=== PATIENT | female | born 1995 | race Caucasian/White ===

== ENCOUNTER 2023-10-01 09:53 | Inpatient (IN) | payer OTHER ==
[2023-10-01 10:22] LABS: Glucose,Whole Blood 96 mg/dL (70-110)
[2023-10-01] MEDS ORDERED: CARBOPROST TROMETHAMINE 250 MCG/ML 1 ML AMP IM PRN (10:25)
[2023-10-01] MEDS ORDERED: TRANEXAMIC 1,000 MG/100ML-NACL 1,000 MG in EMPTY BAG 1 BAG IV PRN (10:25)
[2023-10-01] MEDS ORDERED: LACTATED RINGERS 1,000 ML IV ONE (10:25)
[2023-10-01] MEDS ORDERED: METHYLERGONOVINE 0.2 MG/ML 1 ML AMP IM PRN (10:25)
[2023-10-01] MEDS ORDERED: CITRIC ACID-SODIUM CITRATE 15 ML CUP PO ONE (10:25)
[2023-10-01] MEDS ORDERED: miSOPROStoL 200 MCG TAB PO PRN (10:25)
[2023-10-01] MEDS ORDERED: OXYTOCIN 10 UNIT/ML 1 ML VIAL IM PRN (10:25)
[2023-10-01] MEDS ORDERED: ceFAZolin 3 GM in SODIUM CHLORIDE 0.9% 100 ML IVPB ONE (10:25)
[2023-10-01 10:43] LABS: Basophils # (A) 0.1 k/uL (0-0.2); Basophils % (A) 1 %; Eosinophils # (A) 0.1 k/uL (0-0.7); Eosinophils % (A) 1 %; HCT 38.2 % (34.0-46.0); HGB 13.1 gm/dL (11.4-16.0); Lymphocytes # (A) 2.5 k/uL (1.0-4.8); Lymphocytes % (A) 33 %; MCH 31.3 pg (25.0-35.0); MCHC 34.4 g/dL (31.0-37.0); MCV 90.9 fL (80.0-100.0); Monocytes # (A) 0.3 k/uL (0-1.0); Monocytes % (A) 4 %; Neutrophils # (A) 4.5 k/uL (1.3-7.7); Neutrophils % (A) 59 %; Platelet Count 277 k/uL (150-450); RDW 12.6 % (11.5-15.5); WBC 7.7 k/uL (3.8-10.6)
--- NOTE | 2023-10-01 13:16 | P.HPOB ---
History of Present Illness H&P Date: 10/01/23 Chief Complaint: Term , previous This is a 28-year-old 2 para 1001 woman with an estimated due date of 10/09/2023 who presents at 39 weeks gestation for repeat low transverse section with bilateral salpingectomy. She desires no further pregnancies and options for contraception have been reviewed extensively in the outpatient setting. Her has been complicated by gestational diabetes, diet controlled as well as gestational hypertension controlled with labetalol. She has been on Valtrex HSV suppression since 36 weeks. Obstetric history is significant for 1 previous term section for failure to progress. Laboratory data: Blood type B positive, antibody screen negative, rubella immune, VDRL nonreactive, hepatitis B surface antigen negative, gonorrhea and clinic cultures negative, HIV negative, group B strep negative Review of Systems All systems: negative Past Medical History Past Medical History: No Reported History Additional Past Medical History / Comment(s): Gestational diabetes History of Any Multi-Drug Resistant Organisms: None Reported Past Surgical History: Section, Cholecystectomy Additional Past Surgical History / Comment(s): R arm surgery FX. Past Anesthesia/Blood Transfusion Reactions: No Reported Reaction Past Psychological History: No Psychological Hx Reported Smoking Status: Never smoker Past Alcohol Use History: None Reported Past Drug Use History: None Reported - Past Family History Father Family Medical History: Hypertension, Seizure Disorder Mother Family Medical History: Diabetes Mellitus Medications and Allergies Home Medications Medication Instructions Recorded Confirmed Type Labetalol [Trandate] 1 tab PO DAILY 10/01/23 10/01/23 History Omeprazole 1 tab PO DAILY 10/01/23 10/01/23 History Vit No.179/Iron/Folic 1 tab PO DAILY 10/01/23 10/01/23 History [ Tablet] Allergies Allergy/AdvReac Type Severity Reaction Status Date / Time No Known Allergies Allergy Verified 10/01/23 10:23 Exam Vital Signs Temp Pulse Resp BP Pulse Ox 10/01/23 10:34 98.1 F 99 16 106/63 95 Intake and Output 09/30/23 10/01/23 10/01/23 22:59 06:59 14:59 Other: Weight 127.006 kg This is a pleasant, visibly gravid female in no apparent distress. heart tones are category 1. HEENT exam unremarkable. Lungs clear to auscultation bilaterally. Heart is a regular rate and rhythm. The abdomen is gravid, soft and nontender. She has 1+ bilateral lower extremity edema. Results Result Diagrams: 10/01/23 10:22 Assessment and Plan (1) Gestational diabetes Current Visit: Yes Status: Acute Code(s): O24.419 - GESTATIONAL DIABETES MELLITUS IN , UNSP CONTROL SNOMED Code(s): 32002998 (2) History of Current Visit: Yes Status: Acute Code(s): Z98.891 - HISTORY OF UTERINE SCAR FROM PREVIOUS SURGERY SNOMED Code(s): 792771172 (3) induced hypertension Current Visit: Yes Status: Acute Code(s): O13.9 - GESTATIONAL HTN W/O SIGNIFICANT PROTEINURIA, UNSP TRIMESTER SNOMED Code(s): 51209232 (4) Family planning Current Visit: Yes Status: Acute Code(s): Z30.09 - ENCOUNTER FOR OT GENERAL CNSL AND ADVICE ON CONTRACEPTION SNOMED Code(s): 733193692 Plan: 28-year-old 2 para 1001 woman admitted at 38 weeks gestation for repeat low transverse section with bilateral salpingectomy. Indication for delivery is gestational diabetes and gestational hypertension. She declines trial of labor. She has declined other options for long-term contraception Fe caden status is currently reassuring. She is group B strep negative and Rh+. Risk benefits and alternatives of repeat section have been reviewed with the patient in the outpatient setting. Risks include but are not limited to bleeding, transfusion, infection, damage to bowel, bladder, ureters and/or other pelvic structures and or the . She understands risks of salpingectomy are ectopic . Consent is obtained.
[2023-10-01] MEDS ORDERED: diphenhydrAMINE 25 MG CAP PO PRN (13:19)
[2023-10-01] MEDS ORDERED: diphenhydrAMINE 50 MG CAP PO PRN (13:19)
[2023-10-01] MEDS ORDERED: METOCLOPRAMIDE 5 MG/ML 2 ML VIAL IVP PRN (13:19)
[2023-10-01] MEDS ORDERED: NALOXONE 0.4 MG/ML 1 ML VIAL IV PRN (13:19)
[2023-10-01] MEDS ORDERED: ONDANSETRON 4 MG/2 ML VIAL IVP PRN (13:19)
[2023-10-01] MEDS ORDERED: HYDROmorphone 2 MG TAB PO PRN (13:19)
[2023-10-01] MEDS ORDERED: ZOLPIDEM 5 MG TAB PO PRN (13:19)
[2023-10-01] MEDS ORDERED: diphenhydrAMINE 50 MG/ML 1 ML VIAL IVP PRN ×2 (13:19)
--- NOTE | 2023-10-01 13:19 | P.OP ---
Date of Procedure: 10/01/23 Preoperative Diagnosis: Intrauterine at 38 and one sevenths weeks gestation Gestational diabetes Gestational hypertension History of previous low transverse section, declines trial of labor Desires permanent sterility Postoperative Diagnosis: Same Procedure(s) Performed: Repeat low transverse section with bilateral salpingectomy Anesthesia: spinal Surgeon: Stephanie Pineda Client Retention Specialist #1: Don Miles Estimated Blood Loss (ml): 580 IV fluids (ml): 1,000 Urine output (ml): 100 Pathology: other (Bilateral fallopian tubes) Condition: stable Disposition: PACU Indications for Procedure: History of previous low transverse section, declines trial of labor. Desires permanent sterility. Operative Findings: Female in the vertex presentation with nuchal cord 1. Apgars of 9 at 1 minute and 9 at 5 minutes weighing 7 lbs. 9 oz., 3420 g. Normal-appearing bilateral fallopian tubes, ovaries and uterus. Description of Procedure: After the patient was met preoperatively and all questions were answered, she was taken to the operating room where spinal anesthetic was administered without incident. She was then positioned, prepped and draped in the dorsal supine position with a leftward tilt. Eli catheter was placed. After anesthetic was confirmed adequate, a low transverse skin incision was made following the pre- existing scar. This was carried down to the underlying fascia both sharply and with the electrocautery. The fascia was then incised in the midline and extended bilaterally with the Miller scissors. The superior aspect of the fascial incision was elevated and the underlying rectus muscles dissected off sharply and with the electrocautery. The inferior aspect of the fascial incision was also elevated and the underlying rectus muscles dissected off sharply. The muscles were adherent in the midline. These were bluntly and the peritoneum was tented up with hemostats. The peritoneum was entered sharply with the Metzenbaum scissors. The peritoneal incision was extended inferiorly and superiorly with good visualization of the bladder. The bladder blade was placed. The vesicouterine peritoneum was identified, tented up and entered sharply, the bladder flap was created both sharply and digitally. A low transverse uterine incision was then made sharply and carried down to the underlying amniotic membranes. Membranes were ruptured and clear fluid was noted. The uterine incision was extended bilaterally bluntly. The 's head was delivered from the incision without difficulty. Nuchal cord 1 reduced. The nose and mouth were bulb suctioned. The rest of the infant was delivered onto the field without difficulty. And cut and the was taken to the warmer. An intact, three-vessel cord placenta was then manually removed and the uterus was exteriorized. The uterus was cleared of all clot and debris. The uterine incision was delineated with Cano clamps. The uterine incision was then closed in a running locked fashion with 0 Vicryl suture. Additional [id number] sutures were placed where necessary along the incision for hemostasis. The right and left fallopian tubes were positively identified and carried out to the fimbriated ends. The LigaSure device was utilized to transect the mesosalpinx along the entire length of the fallopian tube to the cornua of the uterus bilaterally. The uterus was then returned to the abdomen and the gutters were cleared of all clot and debris. The uterine incision was reinspected and Bovie electrocautery was utilized were necessary for hemostasis. The fascial edges, peritoneal edges and rectus muscles were inspected and Bovie electrocautery utilized were necessary for hemostasis. The fascia was then closed in a running fashion with 0 Vicryl suture. The subcuticular tissue was copiously suction irrigated and Bovie electrocautery utilized were necessary for hemostasis. 3-0 Vicryl suture was utilized to reapproximate the subcuticular tissue. The skin was then closed in a subcutaneous fashion with 4-0 Vicryl suture. All counts reported to me as correct by the operating room staff at the end of the procedure. The patient received antibiotics preoperatively and Pitocin following cord clamp. Mother and were both transported from the room in stable condition.
[2023-10-01] MEDS ORDERED: OXYTOCIN 30 UNITS/500 ML NS 30 UNIT in SALINE 1 500ML.BAG IV SCH (13:30)
[2023-10-01] MEDS: ACETAMINOPHEN TAB 500 MG TAB PO SCH (16:28)
[2023-10-01] MEDS: IBUPROFEN 600 MG TAB PO SCH (18:15)
[2023-10-01] MEDS: LACTATED RINGERS 1,000 ML IV SCH (18:30)
[2023-10-01] MEDS: KETOROLAC 15 MG/ML 1 ML VIAL IVP PRN (19:44)
[2023-10-01] MEDS: SENNOSIDES-DOCUSATE SODIUM 1 EACH TAB PO SCH (23:53)
[2023-10-02] MEDS: LACTATED RINGERS 1,000 ML IV SCH ×3 (00:05→20:10)
[2023-10-02] MEDS: KETOROLAC 15 MG/ML 1 ML VIAL IVP PRN (03:39)
--- NOTE | 2023-10-02 06:05 | P.PN ---
Progress Note - Text Progress Note Date: 10/02/23 Postoperative day 1 status post section under spinal anesthesia, and i ntrathecal morphine given for postoperative analgesia, patient doing well, there is no anesthesia related complications, Patient had no headache, vital signs stable , Assessment and plan= postop day 1 status post , doing well there is no anesthesia related complication.
[2023-10-02 06:19] LABS: Basophils % (A) 0 %; Eosinophils # (A) 0.1 k/uL (0-0.7); Eosinophils % (A) 2 %; HCT 33.8 % (34.0-46.0); HGB 11.6 gm/dL (11.4-16.0); Lymphocytes # (A) 1.7 k/uL (1.0-4.8); Lymphocytes % (A) 20 %; MCH 30.8 pg (25.0-35.0); MCHC 34.3 g/dL (31.0-37.0); Mean Platelet Volume 8.1; Monocytes # (A) 0.5 k/uL (0-1.0); Monocytes % (A) 5 %; Neutrophils # (A) 5.9 k/uL (1.3-7.7); Neutrophils % (A) 71 %; Platelet Count 222 k/uL (150-450); RBC 3.75 m/uL (3.80-5.40); RDW 12.5 % (11.5-15.5); WBC 8.4 k/uL (3.8-10.6)
[2023-10-02] MEDS: IBUPROFEN 600 MG TAB PO SCH ×4 (06:57→20:13)
[2023-10-02] MEDS: ACETAMINOPHEN TAB 500 MG TAB PO SCH ×4 (06:58→23:53)
[2023-10-02] MEDS: SENNOSIDES-DOCUSATE SODIUM 1 EACH TAB PO SCH ×2 (07:56→20:10)
[2023-10-03 01:03] VITALS: RESP 16
[2023-10-03] MEDS: LACTATED RINGERS 1,000 ML IV SCH ×2 (04:09→08:36)
[2023-10-03] MEDS: IBUPROFEN 600 MG TAB PO SCH ×3 (04:11→09:57)
[2023-10-03] MEDS: ACETAMINOPHEN TAB 500 MG TAB PO SCH ×2 (07:07→11:33)
--- NOTE | 2023-10-03 08:09 | P.DS ---
Providers Date of admission: 10/01/23 09:53 Expected date of discharge: 10/03/23 Attending physician: Stephanie Pineda Primary care physician: Stated None - Discharge Diagnosis(es) (1) Gestational diabetes Current Visit: Yes Status: Acute (2) History of Current Visit: Yes Status: Acute (3) induced hypertension Current Visit: Yes Status: Acute (4) Family planning Current Visit: Yes Status: Acute Hospital Course: This is a 28 year old 2 now para 2 woman who was admitted at 38 weeks gestation for planned repeat low transverse section with bilateral salpingectomy. was complicated by gestational diabetes and - induced hypertension. Blood sugars were controlled on by diet alone. Blood pressures were managed with labetalol. Please see the admission history and physical for complete details. Following admission she went to the operating room where she underwent an uncomplicated repeat low transverse section with bilateral salpingectomy under spinal anesthetic. Findings at the time of surgery were significant for a liveborn female with Apgars of 9 at 1 minute and 9 at 5 minutes. Please see the operative report for details. Her post operative course was unremarkable. By postoperative day #1 she was seen and evaluated. Her incision appeared intact and well-healing. She had minimal lochia. Her vital signs were stable and her postoperative hemoglobin was within normal limits. She was ambulating and voiding without difficulty. By postoperative day #2 she continued to do well. Her vital signs were stable with no hypertension and blood sugars were normal. Her pain was well-controlled with Tylenol and ibuprofen. She was therefore discharged home with routine instructions for postoperative care and follow-up. Procedures: Repeat low transverse section with bilateral salpingectomy Patient Condition at Discharge: Good Plan - Discharge Summary New Discharge Prescriptions: New Ibuprofen [Motrin] 600 mg PO Q6H tab Acetaminophen Tab [Tylenol] 1,000 mg PO Q6H tab Sennosides-Docusate Sodium [Senokot-S] 2 each PO BID@0800,2000 tab Continue Omeprazole 1 tab PO DAILY Vit No.179/Iron/Folic [ Tablet] 1 tab PO DAILY Discontinued Labetalol [Trandate] 1 tab PO DAILY Discharge Medication List Omeprazole 1 tab PO DAILY 10/01/23 [History] Vit No.179/Iron/Folic [ Tablet] 1 tab PO DAILY 10/01/23 [History] Acetaminophen Tab [Tylenol] 1,000 mg PO Q6H tab 10/03/23 [Rx] Ibuprofen [Motrin] 600 mg PO Q6H tab 10/03/23 [Rx] Sennosides-Docusate Sodium [Senokot-S] 2 each PO BID@0800,2000 tab 10/03/23 [Rx] Follow up Appointment(s)/Referral(s): Stephanie Pineda MD [STAFF PHYSICIAN] - 2 Weeks Activity/Diet/Wound Care/Special Instructions: Follow-up in 2 weeks after surgery in the office. Call the office with any concerning signs or symptoms including fever greater than 101, severe abdominal pain, heavy vaginal bleeding, signs of wound infection, increased swelling or redness of the lower extremities, signs of depression. No driving for 2 weeks after surgery. No heavy lifting or vigorous activity until reevaluated in the office. No intercourse for 6 weeks after delivery. Discharge Disposition: HOME SELF-CARE
[2023-10-03] MEDS: SENNOSIDES-DOCUSATE SODIUM 1 EACH TAB PO SCH (08:37)
[2023-10-03 08:58] VITALS: BP 120/69; PULSE 96; TEMP 99.6
== END 2023-10-03 11:25 | disposition home or self-care (01) | DRG 539 ==
LOC: 4FBP 09:53
PROVIDERS: ADMIT Obstetrics & Gynecology; ATTEND Obstetrics & Gynecology
PROC: 0UB70ZZ Excision of Bilateral Fallopian Tubes, Open Approach (ICD-10-PCS; 2023-10-01)
PROC: 10D00Z1 Extraction of Products of Conception, Low, Open Approach (ICD-10-PCS; principal; 2023-10-01 12:00)
DX: O13.4 Gestational [pregnancy-induced] hypertension without significant proteinuria, complicating childbirth (principal); O12.14 Gestational proteinuria, complicating childbirth; B00.9 Herpesviral infection, unspecified; O24.420 Gestational diabetes mellitus in childbirth, diet controlled; O34.211 Maternal care for low transverse scar from previous cesarean delivery; O69.81X0 Labor and delivery complicated by cord around neck, without compression, not applicable or unspecified; Z30.2 Encounter for sterilization; Z37.0 Single live birth; Z3A.39 39 weeks gestation of pregnancy; Z82.0 Family history of epilepsy and other diseases of the nervous system; Z82.49 Family history of ischemic heart disease and other diseases of the circulatory system; Z83.3 Family history of diabetes mellitus
CPT/HCPCS: 85025; 86850; 86900; 86901; 88302